=== PATIENT | male | born 1975 | race Caucasian/White ===

== ENCOUNTER 2017-07-06 13:20 | Emergency (ER) | payer BC ==
[2017-07-06 13:33] VITALS: RESP 16; TEMP 97.9
[2017-07-06] MEDS ORDERED: LET GEL TOPICAL 1 EA SYR TP ONE ×3 (13:33→13:44)
[2017-07-06] MEDS ORDERED: TDAP ADULT 0.5 ML INJ (BOOSTRIX) IM ONE (13:48)
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
[2017-07-06] MEDS ORDERED: HYDROCODONE/APAP 5/325 TAB PO ONE (15:15)
[2017-07-06] MEDS ORDERED: IBUPROFEN 600 MG TAB PO ONE (15:15)
[2017-07-06 16:43] VITALS: BP 121/70; PULSE 74; O2SAT 100
== END 2017-07-06 16:43 | disposition home or self-care (01) ==
PROC: 0HQGXZZ Repair Left Hand Skin, External Approach (ICD-10-PCS; principal; 2017-07-06)
PROC: 0RSXXZZ Reposition Left Finger Phalangeal Joint, External Approach (ICD-10-PCS; principal; 2017-07-06)
PROC: 0HQCXZZ Repair Left Upper Arm Skin, External Approach (ICD-10-PCS; principal; 2017-07-06)
DX: S63.285A Dislocation of proximal interphalangeal joint of left ring finger, initial encounter (principal); S63.287A Dislocation of proximal interphalangeal joint of left little finger, initial encounter; S62.635A Displaced fracture of distal phalanx of left ring finger, initial encounter for closed fracture; S51.012A Laceration without foreign body of left elbow, initial encounter; S09.90XA Unspecified injury of head, initial encounter; S16.1XXA Strain of muscle, fascia and tendon at neck level, initial encounter; S61.215A Laceration without foreign body of left ring finger without damage to nail, initial encounter; Z23 Encounter for immunization; V18.2XXA Unspecified pedal cyclist injured in noncollision transport accident in nontraffic accident, initial encounter; Y92.89 Other specified places as the place of occurrence of the external cause
CPT/HCPCS: 96365; J0690; L3925

== ENCOUNTER 2017-07-27 09:38 | Emergency (ER) | payer BC ==
[2017-07-27 09:50] VITALS: BP 144/90; PULSE 76; RESP 16; TEMP 97.7; O2SAT 97
[2017-07-27] MEDS ORDERED: MECLIZINE HCL 25 MG TAB PO ONE (10:08)
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
== END 2017-07-27 10:30 | disposition home or self-care (01) ==
DX: R42 Dizziness and giddiness (principal)